=== PATIENT | male | born 2000 | race Caucasian/White ===

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

== ENCOUNTER 2021-12-26 08:26 | Emergency (ER) | payer OTHER ==
[~2021-12-26] VITALS: Ht 190.5 cm; Wt 115.7 kg
== END 2021-12-26 11:23 | disposition home or self-care (01) ==
LOC: ED 08:26
DX: R10.31 Right lower quadrant pain (principal); Z23 Encounter for immunization
CPT/HCPCS: 12001; 81001; 90471; 99283-25

== ENCOUNTER 2024-05-13 06:06 | Emergency (ER) | payer OTHER ==
[~2024-05-13] VITALS: Ht 190.5 cm; Wt 75.0 kg
[2024-05-13] MEDS ORDERED: LOSARTAN POTASS50 MG PO (06:14)
[2024-05-13] MEDS ORDERED: ASPIRIN 81 MG CHEW PO ONE (06:15)
[2024-05-13] MEDS ORDERED: NITROGLYCERIN 0.4 MG SUBL SL PRN (06:15)
[2024-05-13 06:24] LABS: HEMOGLOBIN 16.4 g/dL (12.0-18.0); MCH 31.7 (27-36); MCHC 35.6 g/dl (30-36); PLATELET COUNT 323 K/uL (140-440); RBC 5.17 M/ul (4.3-5.7); RDW 12.8 (10.5-15.0)
[2024-05-13 06:47] LABS: ALBUMIN 4.4 g/dL (3.4-5.0); ALBUMIN/GLOBULIN RATIO 1.22 (1.1-2.4); ALKALINE PHOSPHATASE 99 U/L (46-116); ALT (SGPT) 18 U/L (14-59); ANION GAP 15.5 (7-21); AST (SGOT) 10 U/L (15-37); BILIRUBIN, TOTAL 0.4 mg/dL (0.2-1.0); BUN/CREATININE RATIO 9.64 (6.0-28.6); CALCIUM 9.8 mg/dL (8.5-10.1); CARBON DIOXIDE 25 mmol/L (21-32); CHLORIDE 103 mmol/L (98-107); CREATININE, SERUM 1.14 mg/dL (0.70-1.30); GLOMERULAR FILTRATION RATE,EST 93 mL/min (>60); POTASSIUM 3.5 mmol/L (3.5-5.1); UREA NITROGEN 11 mg/dL (7-18)
[2024-05-13 06:48] LABS: EOSINOPHILS, MANUAL DIFF 6; LYMPHOCYTES, MANUAL DIFF 58; MONOCYTES, MANUAL DIFF 8; NEUTROPHILS, MANUAL DIFF 27
[2024-05-13 09:00] VITALS: BP 157/82
--- NOTE | 2024-05-13 19:48 | EKG ---
[facility] [address] [facility] [place], [place] [address] Signed Sinus tachycardia Minimal voltage criteria for LVH, may be normal variant ( R in aVL ) Borderline ECG No previous ECGs available Confirmed by Madhuri Negro MD ([id number]) on 05/13/2024 7:48:46 PM Electronically Signed By: MADHURI NEGRO MD 05/13/241947 PATIENT NAME: JOBY GABRIEL Electrocardiogram DATE OF : [birth year] PHYSICIAN: MADHURI NEGRO MD REPORT #: [id number] REPORT IS CONFIDENTIAL AND NOT TO BE RELEASED WITHOUT AUTHORIZATION
== END 2024-05-13 09:00 | disposition home or self-care (01) ==
LOC: ED 06:06
PROVIDERS: Internal Medicine
DX: R07.89 Other chest pain (principal); I10 Essential (primary) hypertension; Z79.899 Other long term (current) drug therapy
CPT/HCPCS: 36415; 71045; 71260; 80053; 83735; 84484; 85025; 93005; 93010; 99285-25; A9270; Q9967